=== PATIENT | female | born 1995 | race Two or more races ===

== ENCOUNTER 2016-05-26 12:32 | Emergency (ER) | payer OTHER ==
[2016-05-26 12:45] VITALS: RESP 16; TEMP 98.2
--- NOTE | 2016-05-26 13:58 | UCPHY ---
H & P Patient Type: New Chief Complaint Nursing Narrative: C/o SOB (worse with exertion) and burning in R chest x 1 month worsening over last 2 days. Denies cough, chest congestion, fever. Time Seen by Provider: 05/26/16 13:44 HPI/ROS: This patient presents with a chief complaint of dyspnea which has been present intermittently for 1 month. The dyspnea is worse with exertion but can occur at any time and is sometimes associated with a burning sensation in the right chest anteriorly. She has a sensation that she is unable to take a deep breath. She denies cough, fever, URI symptoms or GI symptoms. She is unaware of any palpitations. REVIEW OF SYSTEMS: Constitutional: No fever, no malaise Eyes: No symptoms ENT: Denies sore throat, nasal congestion, ear pain Respiratory: Intermittent shortness of breath, no cough Cardiac: No palpitations, occasional right-sided burning chest pain Gastrointestinal: Denies abdominal pain, nausea, vomiting, diarrhea Genitourinary: No symptoms Musculoskeletal: No sustained back or neck pain Skin: No rash Neurological: No headache Source: Patient Exam Limitations: No limitations - Personal History LMP (Females 10-55): Irregular Current Tetanus Diphtheria and Acellular Pertussis (TDAP): Yes Tetanus Vaccine Date: within 10 years - Medical/Surgical History Hx Asthma: No Hx Chronic Respiratory Disease: No Hx Diabetes: No Hx Cardiac Disease: No Hx Renal Disease: No Hx Cirrhosis: No Hx Alcoholism: No Hx HIV/AIDS: No Hx Splenectomy or Spleen Trauma: No Other PMH: DDD - Family History Significant Family History: No pertinent family hx - Social History Smoking Status: Never smoked - Physical Exam Exam: GENERAL: Well-appearing, well-nourished and in no acute distress. HEAD: Atraumatic, normocephalic. EYES: Pupils equal round and reactive to light, extraocular movements intact, sclera anicteric, conjunctiva are normal. ENT: nares patent, oropharynx clear without exudates. Moist mucous membranes. NECK: Normal range of motion, supple without lymphadenopathy or JVD. LUNGS: Breath sounds clear to auscultation bilaterally and equal. No wheezes rales or rhonchi. No chest wall tenderness HEART: Regular rate and rhythm without murmurs, rubs or gallops. ABDOMEN: Soft, nontender, No guarding, no rebound. No masses appreciated. EXTREMITIES: Normal range of motion, no pitting or edema. No clubbing or cyanosis. NEUROLOGICAL: Cranial nerves II through XII grossly intact. Normal speech, normal gait. PSYCH: Normal mood, normal affect. SKIN: Warm, dry, normal turgor, no visible rashes or lesions. Constitutional: Initial Vital Signs Temperature (C) 36.8 C 05/26/16 12:42 Heart Rate 90 05/26/16 12:42 Respiratory Rate 16 05/26/16 12:42 Blood Pressure 157/91 H 05/26/16 12:42 O2 Sat (%) 98 05/26/16 12:42 O2 Delivery Mode Room Air Allergies/Adverse Reactions: No Known Allergies Allergy (Verified 05/26/16 12:45) Home Medications: Medication Instructions Recorded Diclofenac Sodium 05/26/16 Medical Decision Making - Diagnostics EKG Interpretation: An EKG is normal Imaging: A chest x-ray is normal Differential Diagnosis: Because of this patient's symptoms is currently unknown however I feel we have excluded pulmonary embolus, cardiac disease, pleural effusion, pneumothorax, pneumonia many other serious causes for dyspnea. I feel that is safe for her to go home and have this more fully evaluated as an outpatient. - Data Points Laboratory Results: 05/26/16 14:04 D-Dimer 0.38 ug/mLFEU (0.00-0.50) Departure - Departure Disposition: Home, Routine, Self-Care Clinical Impression: Dyspnea Qualifiers: Dyspnea type: unspecified Qualifier Code: (R06.00) Dyspnea, unspecified Condition: Good Instructions: Dyspnea (ED) Additional Instructions: Because she shortness of breath is a worrisome symptom I feel that you should have this evaluated more fully by the rate clerk passenger whose name is indicated below. At this time there is no obvious cause of your symptoms. If your symptoms worsen you should be seen immediately. Referrals: Vini Brito MD [Medical Doctor] - As per Instructions - PQRS PQRS Measurement: Not applicable
--- NOTE | 2016-05-26 14:13 | CPEKG ---
Heart Rate: 66 RR Interval: 909 P-R Interval: 128 QRSD Interval: 80 QT Interval: 380 QTC Interval: 399 P Calvert: 31 QRS Calvert: 59 T Wave Calvert: 46 EKG Severity - NORMAL ECG - EKG Impression: SINUS RHYTHM Electronically Signed By: Suhail Garcia 26-May-2016 14:24:06
[2016-05-26 14:31] VITALS: BP 139/79; PULSE 80; O2SAT 97
--- NOTE | 2016-05-26 14:58 | DX ---
Chest, PA and Lateral History: Dyspnea x1 month Comparison: None Findings: Lungs are clear, without infiltrate or consolidation. Heart size is normal. There is no mag nopathy or mass lesion. There is no pleural effusion, pneumomediastinum or pneumothorax. Bones are un remarkable for age. Impression: Normal.
== END 2016-05-26 14:46 | disposition home or self-care (01) ==
LOC: CED 12:32
DX: R06.00 Dyspnea, unspecified (principal)
CPT/HCPCS: 71020-PO; 85378-PO; 93010-PO; 99205-PO; G0463-PO